=== PATIENT | male | born 1965 | race Caucasian/White ===

== ENCOUNTER 2018-09-04 20:41 | Emergency (ER) | payer OTHER ==
[~2018-09-04] VITALS: Ht 157.5 cm; Wt 77.7 kg
[2018-09-04 20:52] VITALS: Ht 157.5 cm; Wt 77.7 kg
[2018-09-04 22:36] VITALS: BP 160/77
== END 2018-09-04 22:40 | disposition home or self-care (01) ==
LOC: ED 20:41
DX: J10.1 Influenza due to other identified influenza virus with other respiratory manifestations (principal); I10 Essential (primary) hypertension; E11.9 Type 2 diabetes mellitus without complications; K21.9 Gastro-esophageal reflux disease without esophagitis; M79.7 Fibromyalgia
CPT/HCPCS: 87804